=== PATIENT | male | born 1995 | race Caucasian/White ===

== ENCOUNTER 2021-01-27 00:24 | Emergency (ER) | payer SELFPAY ==
[~2021-01-27] VITALS: Ht 190.5 cm; Wt 118.0 kg
[2021-01-27] MEDS ORDERED: METHYLPREDNISOLONE SOD SUCC 125 MG/2 ML VIAL IM STA (00:59)
[2021-01-27] MEDS ORDERED: ALBUTEROL (0.083%) 2.5MG/3ML NEB HHN STA (00:59)
[2021-01-27] MEDS ORDERED: IPRATROPIUM BROMIDE (0.02%) 0.5MG/2.5ML NEB HHN STA (00:59)
[2021-01-27] MEDS ORDERED: P20 MT ×2 (02:26)
[2021-01-27] MEDS ORDERED: ALBU6.7H9 INH ×2 (02:26)
[2021-01-27 02:32] VITALS: BP 149/89
== END 2021-01-27 02:32 | disposition home or self-care (01) ==
LOC: ER 00:24
DX: J45.901 Unspecified asthma with (acute) exacerbation (principal)
CPT/HCPCS: 94640; 99283; J2930